=== PATIENT | female | born 1990 | race Caucasian/White ===

== ENCOUNTER → 2017-01-03 | Outpatient (CLI) | payer OTHER ==
[2017-01-03 16:16] VITALS: BP 116/74
== END ==
LOC: MHUC 15:49
PROVIDERS: ATTEND Physician Assistant
DX: J00 Acute nasopharyngitis [common cold] (principal)
CPT/HCPCS: 99213

== ENCOUNTER → 2017-02-13 | Outpatient (CLI) | payer OTHER ==
[2017-02-13 16:16] VITALS: BP 124/72
== END ==
LOC: MHUC 15:34
PROVIDERS: ATTEND Physician Assistant
DX: R30.0 Dysuria (principal)
CPT/HCPCS: 81002; 99213

== ENCOUNTER → 2017-03-12 | Outpatient (CLI) | payer OTHER ==
[~2017-03-12] MED LIST: ACET5ELI PO; CPR500T PO; IBP800T PO; LIDOVISC MT; MTC5T PO; NAPR550T PO; NF-CLINGEL TOP; NF-TORA10 PO; OXYC1TAB87 PO; SERT50TA2 PO; TRAM-25 PO; [UNRECOGNIZED DRUG - OTHER]; antidepressant
--- NOTE | 2017-03-12 15:11 | Diagnostic Imaging Report ---
PROCEDURE: US PELVIC (NON OB) TECHNIQUE: Multiple real-time grayscale images were obtained over the pelvis in various projections transabdominally. INDICATION: Midline pelvic pain. COMPARISON: 10/29/2015. DISCUSSION: Transabdominal sonographic evaluation of the pelvis was performed. The uterus is normal in echotexture and size measuring 8.4 x 3.8 x 3.5 cm. Normal endometrial thickness measuring 0.7 cm. The ovaries appear normal in echotexture and size bilaterally with normal color Doppler blood flow. The right ovary measures 3.5 x 1.9 x 2.0 cm. The left ovary measures 3.2 x 2.1 x 2.3 cm. No abnormal adnexal mass or fluid. IMPRESSION: 1. Unremarkable pelvic ultrasound. Dictated by: Dictated on workstation # [id number]
== END ==
LOC: RAD 14:30
PROVIDERS: ATTEND Family Medicine
DX: R10.2 Pelvic and perineal pain (principal)
CPT/HCPCS: 76856

== ENCOUNTER → 2017-03-29 | Outpatient (CLI) | payer OTHER ==
[~2017-03-29] MED LIST changes: +DOXY-182 PO
[2017-03-29 19:38] VITALS: BP 111/73
--- NOTE | 2017-03-29 19:38 | Urgent Care T Sheet Gen (E) ---
Intake General Temperature (Fahrenheit): 98.4 Pulse: 86 Blood Pressure Systolic: 111 Blood Pressure Diastolic: 73 Respirations: 16 Chief Complaint: Pain in right breast Description of Symptoms 26 year old female presents with right breast pain. Pt states she has a small area of redness on distal aspect of right breast and tenderness that extends up into her armpit. Pt states she has had this in the exact same location in past. She had an ultrasound and was referred to Dr Fields. He scheduled her for a biopsy but then the spot was gone when he went to biopsy. Another time she saw her PCP and was started on abx and this resolved it. States in the past it did develop a head and popped expelling blood. Denies fever, chills, or malaise. States pain 8/10 and hurts to move arm. Denies any risk of . Source: Patient Exam Limitations: No limitations History of Present Illness Onset & Duration: Days (2) Timing: Still present Modifying Factors: Immobilization, Movement, Rest Associated Symptoms: Other (Fatigue) Location: right breast distal aspect in skin fold Recent Trauma: No Similar Sympotms Previously: Yes Prior Treatment: Treated by doctor (PCP and Dr Fields) Allergies: Coded Allergies: Sulfa (Sulfonamide Antibiotics) (Verified Allergy, Mild, Nausea, 10/22/16) Home Meds Active Scripts Doxycycline Hyclate 100 Mg Tablet.dr100 Mg PO BID Infection #14 TAB Ref 0 Prov:VINCE CASTRO APRN 03/29/17 Ciprofloxacin HCl (Cipro)500 Mg [id number] Mg PO BID Infection #10 TAB Ref 0 Prov:LYNSEY DOAN 11/09/16 Ketorolac Tromethamine (Toradol)10 Mg Tab10 Mg PO Q6H PRN PAIN #15 TAB Prov:RENZO LU MD 10/22/16 Naproxen Sodium (Anaprox DS)550 Mg [id number] Mg PO BID Anti-Inflammatory #14 TAB Ref 0 Prov:STARR HUTSON MD 04/30/16 Additional Comment Spoke with pharmacist at [facility] and clarified that it is not the delayed release formula. Respiratory Constitutional Symptoms: No Chills, No Diaphoresis, No Fever, No Malaise, No Weakness, Other (fatigue) EENTM: No symptoms reported Respiratory: No Cough, No Short of breath, No Wheezing Cardiovascular: No Chest pain, No Edema, No Palpitations, No Syncope Gastrointestinal/Abdominal: No Abdominal pain, No Constipation, No Diarrhea, No Nausea, No Vomiting : No Estimated Date of Delivery: 04/16/14 Musculoskeletal: Other (pain in right axilla) Skin: Lesions (right breast- erythema/ purple appearance) Neurological: No symptoms reported Hematologic/Lymphatic: Swollen glands (right axilla) All Other Systems Reviewed Remaining Systems: All other systems reviewed with negative findings Past Mqoxeey-Awhkgm-Iuivpk Hx Patient's Social History Alcohol Use: Occasionally Uses Smoking Status: Current some day smoker Recent foreign travel: No Surgeries/Hospitalizations Hospitalization/Surgery Hx: broken foot -4 years ago blood clot left leg-4 years ago tonsillectomy- in childhood lithotripsy-2010 for kidney stones ovarian cyst drainage-2005 Respiratory Respiratory History: None Cardiovascular Cardiovascular History: Hypertension Comment: Gestational HTN Reproductive System : 1 Living Children: 0 Sexually Transmitted Diseases: No Gastrointestinal GI/Endocrine History: None Diabetes Diabetes: No HEENT Impaired Vision: None Hearing Impaired: None Integumentary Integumentary History: Pruritus Comment: pimple like sore on her inner left thigh Psychosocial Behavior Disorders: None Physical Exam Physical Exam General Appearance: WD/WN No apparent distress Eyes, Ears, Nose, Throat Ex: PERRL/EOMI Neck Exam: Non tender Full range of motion Supple Normal inspection Normal thyroid Respiratory Exam: Chest non-tender Lungs clear Normal breath sounds No respiratory distress No accessory muscles used Cardiovascular Exam: Regular rate, rhythm No edema No gallop No JVD No murmur GI/ Exam: Non tender No organomegaly Normal bowel sounds No distention Skin Exam: Warm/dry/intact (Erythematous area 1 cm in diameter, no firmness with regional adenopathy) Lymphatic Exam: Axilla node tender (R) Departure Urgent Care Impression Chief Complaint: Pain in right breast Impression: Primary Impression: Cellulitis of right breast Departure Disposition: 01 HOME OR SELF-CARE Additional Disposition Comment Discussed that area on breast has mild erythema and she has regional adenopathy , there is not an abscess to drain at this time. Would recommend starting Doxycycline and follow up with PCP and Dr Fields for ultrasound and further testing. If any increased redness, fever, or chills, pt must report to ED. Pt verbalized that she will schedule follow up. Condition: Stable Referrals: STARR SULLIVAN MD (PCP) Scripts Doxycycline Hyclate 100 Mg Tablet.dr100 Mg PO BID Infection #14 TAB Ref 0 Prov:VINCE CASTRO APRN 03/29/17 End of report . VINCE CASTRO APRN March 29, 2017 19:38
== END ==
LOC: MHUC 18:23
PROVIDERS: ATTEND Nurse Practitioner Family
DX: N61.0 Mastitis without abscess (principal)

== ENCOUNTER 2017-04-16 18:27 | Emergency (ER) | payer OTHER ==
[~2017-04-16] VITALS: Ht 154.9 cm; Wt 79.0 kg
--- OUTSIDE RECORDS SUMMARY | 2017-04-16 18:34 | XMS REPORT | Summary of Care ---
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, 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 Medications Name Dates Details ValACYclovir HCl - 1 GM Oral Tablet Take one tablet three times a day for 7 days Quantity: 21 Refills: 0 Trini Marissa Started 03-Mar-2016 Active Allergies and Adverse Reactions Name Dates Details Sulfa Drugs Status: Active Procedures Procedure Dates Details SERUM TEST 8020 Ordered:03-Mar-2016 HSV CULTURE [id number] Ordered:03-Mar-2016 Immunization Name Dates Details Immunizations not documented Social History Name Dates Details Smoking StatusLight tobacco smoker Vital Signs Date Test Result Details 03-Mar-2016 15:16 BP Systolic 120 mm[Hg] Status: BP Diastolic 72 mm[Hg] Status: Temperature 99.5 f Status: Heart Rate 88 /min Status: Height 62 in Status: Weight 177.125 lb Status: O2 SAT 98 % Status: Body Mass Index Calculated 32.4 kg/m2 Status: Body Surface Area Calculated 1.82 m2 Status: Results Date Description Value Details Results not documented Plan of Care Planned Observations Name Dates Details Planned Goals not documented Goal Instructions Instructions not documented Encounters Appointment; Marissa Feliz Encounter Diagnosis: Problem not documented On 03-Mar-2016 15:19 Appointment; Messi Hartman Encounter Diagnosis: Problem not documented On 14:30
[2017-04-16] MEDS ORDERED: SODIUM CHLORIDE FLUSH 3 ML SYR IV ONE (19:00)
[2017-04-16] MEDS ORDERED: SODIUM CHLORIDE FLUSH 10 ML SYR IV PRN (19:00)
[2017-04-16] MEDS ORDERED: ONDANSETRON 2 MG/ML (Z0FRAN) 2 ML VIAL IV ONE (19:00)
[2017-04-16] MEDS ORDERED: ONDANSETRON 4 MG (ZOFRAN) ORAL DISSOLVE TAB PO ONE (19:25)
[2017-04-16] MEDS ORDERED: ONDA4TAB8 PO (19:26)
[2017-04-16 19:43] VITALS: BP 116/75
[2017-04-16 19:51] LABS: BILIRUBIN,URINE Negative (Negative); CLARITY,URINE Clear; COLOR,URINE Yellow; GLUCOSE, URINE (UA) Negative (Negative); LEUKOCYTE ESTERASE ,URINE Negative (Negative); UROBILINOGEN,URINE 0.2 mg/dL (0.2-1.0)
[2017-04-16 20:18] LABS: RBC,URINE 0-2 /HPF; URINE CENTRIFUGED VOLUME 12 mL
== END 2017-04-16 19:44 | disposition home or self-care (01) ==
LOC: EDUNIT# 18:27 → ED 18:29
DX: O21.9 Vomiting of pregnancy, unspecified (principal); O26.891 Other specified pregnancy related conditions, first trimester; Z3A.00 Weeks of gestation of pregnancy not specified
CPT/HCPCS: 81003; 81015; 99282; 99283